=== PATIENT | female | born 1980 | race Caucasian/White ===

== ENCOUNTER 2017-03-02 23:19 | Emergency (ER) | payer OTHER ==
[~2017-03-02] VITALS: Ht 154.9 cm; Wt 49.8 kg
[~2017-03-02 23:19] MED LIST: AMOXICILLI400 MG/5 M PO; AMOXICILLIN875 MG PO; ANAPROX DS550 M1 PO; DAYTIME COLD PO; EXCEDRIN EXTRA1 EACH PO; EXCEDRIN MIGRA1 EACH PO; FLEXERIL10 MG PO; KEFLEX500 MG PO; MEDROL DOSEPAK4 MG PO; MOBIC15 MG PO; MOTRIN800 MG PO; MUCUS ER600 MG PO; NO HOME MED; NOHOMEMEDS; PATANOL OP100 DROP/5 LEFT EYE; PERCOCET 5/31 TABLET PO; PREDNISONE10 MG PO; PROMETHAZINE HC25 M1 PO; ROBAFEN AC SYR473 ML PO; ROBITUSSIN NIG118 ML PO; TESSALON PERLE100 MG PO; TORADOL10 MG PO; VICODIN,LORT1 TABLET PO; ZANTAC150 MG PO; ZITHROMAX Z-PA250 MG PO; ZOFRAN ODT4 MG PO
[2017-03-03 01:22] LABS: ADD MIUA? YES; BILIRUBIN NEGATIVE; BLOOD MODERATE; COLOR YELLOW ((YELLOW)); GLUCOSE (STRIP) NEGATIVE; KETONES NEGATIVE; LEUKOCYTES TRACE; NITRITE POSITIVE; PROTEIN (STRIP) NEGATIVE; SPECIFIC GRAVITY 1.011 (1.000-1.030); UROBILINOGEN 0.2 MG/DL (0.2-1.0)
[2017-03-03] MEDS ORDERED: ZOFRAN ODT4 MG PO (01:47)
[2017-03-03] MEDS ORDERED: LEVAQUIN500 MG PO (01:47)
[2017-03-03 01:48] LABS: BACTERIA RARE /HPF; EPITHELIAL CELLS RARE /HPF; MUCUS TRACE /LPF; RED BLOOD CELLS 0-5 /HPF (0-5); UCUL ADDED? NO; WHITE BLOOD CELLS 0-5 /HPF (0-5)
[2017-03-03 02:15] VITALS: BP 130/83
== END 2017-03-03 02:17 | disposition home or self-care (01) ==
LOC: EXP 23:19 → EME 23:19 → EXP 03-03 02:17
PROVIDERS: Physician Assistant
DX: J32.9 Chronic sinusitis, unspecified (principal); N39.0 Urinary tract infection, site not specified; R11.2 Nausea with vomiting, unspecified; G89.29 Other chronic pain; M54.9 Dorsalgia, unspecified
CPT/HCPCS: 81003; 99281; 99284

== ENCOUNTER 2017-06-14 16:44 | Emergency (ER) | payer SELFPAY ==
[~2017-06-14] VITALS: Ht 154.9 cm; Wt 49.4 kg
[~2017-06-14 16:44] MED LIST changes: +LEVAQUIN500 MG PO
[2017-06-14 17:33] LABS: HEMATOCRIT 35.4 % (36.0-46.0); MCH 31.1 PG (29.0-34.0); MCHC 33.6 G/DL (30.0-36.0); MCV 92.4 FL (83-99); MEAN PLAT.VOLUME 10.7 uM^3 (9.5-12.4); PLATELET COUNT 182 K/uL (156-360); RBC DIS.WIDTH-CV 12.2 % (11.8-14.6); RBC DIS.WIDTH-SD 41.3 % (39-53); RED BLOOD COUNT 3.83 M/uL (3.80-5.20); WHITE BLOOD COUNT 5.2 K/uL (4.1-10.2)
[2017-06-14 17:41] LABS: CHLORIDE 107 mEq/L (99-109); POTASSIUM 3.9 mEq/L (3.7-5.4); SODIUM 140 mEq/L (136-147)
[2017-06-14 17:42] LABS: GLUCOSE 94 mg/dL (70-99)
[2017-06-14 17:44] LABS: ANION GAP 8 MEQ/L (2-14)
[2017-06-14 17:45] LABS: D-DIMER ELISA < 150.00 ng/mLDDU (<230)
[2017-06-14 17:46] LABS: GFR ESTIMATE (CALCULATED) > 59 mL/min/
[2017-06-14 17:47] LABS: UREA NITROGEN (BUN) 14 mg/dL (9-23)
[2017-06-14 17:53] LABS: TROP-I INTERPRETATION NEGATIVE; TROPONIN-I < 0.01 ng/mL (0.0-0.30)
[2017-06-14 20:41] LABS: TROP-I INTERPRETATION NEGATIVE; TROPONIN-I < 0.01 ng/mL (0.0-0.30)
[2017-06-14 21:01] VITALS: BP 109/68
== END 2017-06-14 21:02 | disposition home or self-care (01) ==
LOC: EME 16:44
PROVIDERS: Physician Assistant
DX: R07.89 Other chest pain (principal); I34.1 Nonrheumatic mitral (valve) prolapse; I45.10 Unspecified right bundle-branch block; Z82.3 Family history of stroke; Z88.0 Allergy status to penicillin
CPT/HCPCS: 71020; 80048; 84484; 85027; 85379; 93005; 99281; 99283

== ENCOUNTER 2017-08-27 15:58 | Emergency (ER) | payer SELFPAY ==
[~2017-08-27] VITALS: Ht 152.4 cm; Wt 48.6 kg
[~2017-08-27 15:58] MED LIST changes: +MOTRIN400 MG PO
[2017-08-27 16:02] VITALS: BP 122/75
[2017-08-27 16:27] LABS: ADD MIUA? YES; BILIRUBIN NEGATIVE; BLOOD NEGATIVE; COLOR YELLOW ((YELLOW)); GLUCOSE (STRIP) NEGATIVE; KETONES NEGATIVE; LEUKOCYTES SMALL; NITRITE NEGATIVE; PROTEIN (STRIP) NEGATIVE; SPECIFIC GRAVITY 1.016 (1.000-1.030); UROBILINOGEN 0.2 MG/DL (0.2-1.0)
[2017-08-27 16:33] LABS: BACTERIA RARE /HPF; CALCIUM OXALATE CRYSTALS 1+ /HPF; EPITHELIAL CELLS 2+ /HPF; MUCUS TRACE /LPF; UCUL ADDED? NO; WHITE BLOOD CELLS 0-5 /HPF (0-5)
[2017-08-27 16:43] LABS: HEMATOCRIT 37.9 % (36.0-46.0); MCH 30.7 PG (29.0-34.0); MCV 90.2 FL (83-99); MEAN PLAT.VOLUME 10.8 uM^3 (9.5-12.4); PLATELET COUNT 209 K/uL (156-360); RBC DIS.WIDTH-CV 11.8 % (11.8-14.6); RBC DIS.WIDTH-SD 38.8 % (39-53); WHITE BLOOD COUNT 5.5 K/uL (4.1-10.2)
[2017-08-27 16:51] LABS: CHLORIDE 108 mEq/L (99-109); POTASSIUM 3.9 mEq/L (3.7-5.4); SODIUM 138 mEq/L (136-147)
[2017-08-27 16:53] LABS: GLUCOSE 96 mg/dL (70-99)
[2017-08-27 16:55] LABS: ANION GAP 6 MEQ/L (2-14)
[2017-08-27 16:57] LABS: ALKALINE PHOSPHATASE 75 IU/L (3-129); GFR ESTIMATE (CALCULATED) > 59 mL/min/
[2017-08-27 16:58] LABS: UREA NITROGEN (BUN) 12 mg/dL (9-23)
[2017-08-27 17:06] LABS: QUANTITATIVE HCG < 4.0 MIU/ML
== END 2017-08-27 19:12 | disposition left against medical advice (07) ==
LOC: EME 15:58
DX: R10.9 Unspecified abdominal pain (principal); Z53.21 Procedure and treatment not carried out due to patient leaving prior to being seen by health care provider
CPT/HCPCS: 80053; 81003; 84702; 85027

== ENCOUNTER 2017-10-12 12:31 | Emergency (ER) | payer SELFPAY ==
[~2017-10-12] VITALS: Ht 149.9 cm; Wt 49.3 kg
[2017-10-12] MEDS ORDERED: NAPROSYN500 MG PO (14:14)
[2017-10-12] MEDS ORDERED: FLEXERIL10 MG PO (14:14)
[2017-10-12 14:55] VITALS: BP 115/80
== END 2017-10-12 14:58 | disposition home or self-care (01) ==
LOC: EME 12:31
DX: S03.40XA Sprain of jaw, unspecified side, initial encounter (principal); I34.1 Nonrheumatic mitral (valve) prolapse; N83.209 Unspecified ovarian cyst, unspecified side; Z88.2 Allergy status to sulfonamides; Z88.0 Allergy status to penicillin
CPT/HCPCS: 70110; 99281; 99283

== ENCOUNTER 2018-01-05 11:12 | Emergency (ER) | payer SELFPAY ==
[~2018-01-05] VITALS: Ht 152.4 cm; Wt 49.6 kg
[~2018-01-05 11:12] MED LIST changes: +NAPROSYN500 MG PO
[2018-01-05] MEDS ORDERED: ULTRAM50 MG PO (12:12)
[2018-01-05 12:48] VITALS: BP 126/91
== END 2018-01-05 12:49 | disposition home or self-care (01) ==
LOC: EME 11:12
PROC: 2W38X1Z Immobilization of Right Upper Extremity using Splint (ICD-10-PCS; principal; 2018-01-05)
DX: S59.901A Unspecified injury of right elbow, initial encounter (principal); W00.0XXA Fall on same level due to ice and snow, initial encounter
CPT/HCPCS: 73080; 99281; 99283

== ENCOUNTER 2018-01-08 10:12 | Emergency (ER) | payer SELFPAY ==
[~2018-01-08] VITALS: Ht 154.9 cm; Wt 49.0 kg
[~2018-01-08 10:12] MED LIST changes: +ULTRAM50 MG PO
[2018-01-08 11:52] VITALS: BP 111/82
== END 2018-01-08 11:53 | disposition home or self-care (01) ==
LOC: EME 10:12
DX: S50.01XD Contusion of right elbow, subsequent encounter (principal); W00.0XXD Fall on same level due to ice and snow, subsequent encounter; M79.641 Pain in right hand; Z88.2 Allergy status to sulfonamides; Z88.0 Allergy status to penicillin; Z88.8 Allergy status to other drugs, medicaments and biological substances
CPT/HCPCS: 73080; 73130; 99281; 99283